=== PATIENT | female | born 1980 | race Caucasian/White ===

== ENCOUNTER → 2025-02-28 | Outpatient (CLI) | payer OTHER, SELFPAY ==
[2025-02-28 16:26] LABS: Hematocrit 39.1 % (37-47); Hemoglobin 12.9 g/dL (12.0-15.0); Immature Granulocytes Count 0.030 X10^3/uL (0.0-0.0); Mean Corp Hgb Conc 33.0 g/dL (32-36); Mean Corpuscular Volume 94.7 fL (81-99); Mean Platelet Vol. 11.2 fl (6.2-12.0); NRBC Flagged by Analyzer 0 % (0-5); Platelet Count 264 K/mm3 (150-450); RBC Distribution Width CV 13.3 % (11.6-14.6); RBC Distribution Width SD 45.9 fl (35.1-43.9); Red Blood Count 4.13 M/mm3 (4.2-5.4); White Blood Count 8.0 K/mm3 (4.4-11.0)
[2025-02-28 17:10] LABS: CRP 5.14 mg/L (0.0-3.0)
[2025-03-02 15:08] LABS: Immunoglobulin A 212 mg/dL (87-352)
[2025-03-06 03:06] LABS: Egg, Whole 3.35 kU/L (Class III); Mussels 0.15 kU/L (Class 0/I)
== END | disposition home or self-care (01) ==
LOC: LAB 15:53
PROVIDERS: Referring Provider Student in an Organized Health Care Education/Training Program; Visit Provider Student in an Organized Health Care Education/Training Program
DX: R19.5 Other fecal abnormalities (principal)
CPT/HCPCS: 36415; 82784; 83516; 85025; 85652; 86003; 86005; 86140; 86255

== ENCOUNTER 2025-03-08 10:16 | Emergency (ER) | payer OTHER, SELFPAY ==
[2025-03-08 10:19] VITALS: BP 153/94; PULSE 100; RESP 22; TEMP 36.4; O2SAT 98; BMI 28.0
--- NOTE | 2025-03-08 10:42 | EDS_ITS ---
HPI HPI - GI History of Present Illness Chief Complaint: Abd Pain Detail of Chief Complaint: Abdominal pain Informant: patient Narrative Narrative: Patient presents with abdominal pain that she has had for the last 2 weeks off-and-on. 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 Recently started Linzess. Last bowel movement was this morning and was small. She has had issues with hematuria in the past. She tells me she has ulcerations in her bladder. Patient states that she has had abdominal pain since the day she was born and she has had all the worst doctors. She has had intermittent blood in her stool and intermittent blood in her urine. She denies any fevers. Currently her pain is a 3 out of 10. This bout of pain started about 2 hours ago. PFSH PFSH Home Medications ?Medication ?Instructions ?Recorded ?Last Taken ?Type duloxetine 60 mg capsule,delayed 60 mg PO QDAY 5 03/08/25 History release glycopyrrolate 2 mg tablet 2 mg PO TID 02/28/25 History (Pilar Webb) dicyclomine 10 mg capsule 20 mg (2 x 10 mg) PO TIDAC # 20 03/08/25 Unknown Rx CAPSULES linaclotide 145 mcg capsule 145 mcg PO DAILY 03/08/25 03/08/25 History (Linzess) ondansetron 4 mg disintegrating 4 mg PO Q8H PRN PRN Na usea #10 tabs 03/08/25 Unknown Rx tablet Allergy/AdvReac Type Severity Reaction Status Date / Time egg (eggs) Allergy Other Verified 03/08/25 10:51 milk Allergy Other Verified 03/08/25 10:51 peanut (peanuts) Allergy Other Verified 03/08/25 10:51 soy Allergy Other Verified 03/08/25 10:51 wheat Allergy Abd Verified 03/08/25 10:51 cramps/diarrhea Surgical History (Updated 03/08/25 @ 10:49 by Candice Brennan) H/O: hysterectomy Social History Smoking Status: Never smoker ROS ROS ED Review of Systems ROS Unobtainable: other Constitutional Constitutional ED: Reports lethargy; Denies chills, fever(s), sweats or weight loss Eyes Eyes: Denies blurry vision, change in vision or diplopia ENT ENT ED: Denies rhinorrhea or sore throat Cardiovascular Cardiovascular: Denies chest pain, orthopnea or racing heartbeat Respiratory/Chest Respiratory/Chest: Denies cough, dyspnea, dyspnea on exertion, orthopnea or sputum Gastrointestinal Gastrointestinal: Reports abdominal pain, nausea and other Details: Intermittent blood in her stool ; Denies diarrhea or vomiting Genitourinary Genitourinary ED: Reports hematuria; Denies dysuria or urinary frequency Musculoskeletal Musculoskeletal: Denies arthralgias, back pain, myalgias or neck pain Integumentary Denies abscess, Abrasions or rash Neurologic Neurologic: Denies headache(s) or weakness Psychiatric Psychiatric: Denies anxiety, depression or suicidal thoughts Endocrine Endocrinology: Denies polydipsia, polyphagia or polyuria Hematologic/Lymphatic Hematologic/Lymphatic: Denies easy bleeding, easy bruising or lymphadenopathy Allergic/Immunologic Allergic/Immunologic ED: Denies mouth swelling, tongue swelling or urticaria EXAM Physical Exam Const Vital Signs: 03/08/25 10:19 03/08/25 12:16 Temperature 97.6 F L Temperature Source Oral Pulse Rate 100 72 Respiratory Rate 22 H 18 Blood Pressure 153/94 H 104/59 L Blood Pressure Mean 113 74 Pulse Ox 98 100 Oxygen Delivery Method Room Air Room Air Positive well nourished and well developed General Appearance ED: well developed and NAD HEENT Reports TM's clear and moist mucous membranes normocephalic and atraumatic; Negative for trauma or tenderness Tympanic Membrane ED: Yes TM's clear Eyes PERRL and EOMs intact bilaterally General Eye ED: Negative for pale conjunctiva or scleral icterus Neck no lymphadenopathy, supple and no JVD General: Negative for tenderness Chest Wall inspection of chest normal and palpation of chest normal Chest: Negative for tenderness Resp normal respiratory effort and clear to auscultation bilaterally Effort and Inspection: Negative for respiratory distress or pain with movement Auscultation: Negative for rhonchi, wheezes or diminished lung sounds Cardio regular rate, regular rhythm, S1 normal heart sound, S2 normal heart sound and no murmurs Peripheral Pulses: pulses 2+ throughout GI soft to palpation, non-tender, non-distended and no masses GI Narrative: Hyperactive bowel sounds. Mild diffuse tenderness. There is no rebound, rigidity, or peritoneal signs. No masses palpated. Back/Spine no CVA tenderness and no thoracic nor lumbar tenderness Extremity normal to inspection General Extremety ED: Negative for edema General Extremity: Negative for edema Neuro oriented x3, CN's II-XII intact bilaterally, no sensory deficits noted and gait normal Sensorium / Orientation: awake, alert, oriented to person, oriented to place and oriented to time Motor Exam: strength 5/5 throughout and strength abnormal Psych mental status grossly normal Skin no rashes or lesions noted and no wounds MDM MDM MDM Narrative Medical decision making narrative: Patient presents with chronic ongoing abdominal pain and bloating as well as nausea with eating. Currently being followed by GI. IV line established on arrival. CBC with differential obtained showed a white count of 6.4 with hemoglobin 13.3 and platelet count 221. Chemistries unremarkable. LFTs were normal. Lipase normal. hCG was negative. Urinalysis without signs of infection. Patient had a CT scan of the abdomen pelvis with IV contrast that showed no acute process. She had left ovarian cyst patient also had a benign cyst in the right kidney. No bowel wall abnormality noted. Discussed results with patient. At this point etiology of her symptoms unclear. Recommended continued follow-up with GI. Will order Bentyl and Zofran as needed. Lab Data Attestation: I reviewed the patient's lab results. Labs: Laboratory Results - last 24 hr 03/08/25 03/08/25 11:04 12:39 WBC 6.4 RBC 4.20 Hgb 13.3 Hct 38.8 MCV 92.4 MCH 31.7 MCHC 34.3 RDW Std Deviation 45.4 H RDW Coeff of [place] 13.5 Plt Count 221 MPV 11.2 Immature Gran % (Auto) 0.300 Neut % (Auto) 59.7 Lymph % (Auto) 25.3 [place] % (Auto) 5.8 Eos % (Auto) 8.6 H Baso % (Auto) 0.3 Absolute Neuts (auto) 3.8 Absolute Lymphs (auto) 1.61 Nucleated RBC % 0 Sodium 137 Potassium 4.0 Chloride 104 Carbon Dioxide 19.2 L Anion Gap 14 BUN 12 Creatinine 0.93 Estim Creat Clear Calc 80.04 Est GFR (MDRD) Non-Af 77 BUN/Creatinine Ratio 12.4 Glucose 106 H Lactic Acid 1.7 Calcium 9.4 Total Bilirubin 0.40 AST 26 ALT 20 Alkaline Phosphatase 92 Total Protein 7.3 Albumin 4.3 Globulin 3.0 Albumin/Globulin Ratio 1.4 Lipase 52 Serum , Qual NEGATIVE Urine Color Yellow Urine Clarity Clear Urine pH 7.0 Ur Specific Waves 1.005 Urine Protein 15 H Urine Glucose (UA) Normal Urine Ketones Negative Urine Occult Blood 25 H Urine Nitrite Negative Urine Bilirubin Negative Urine Urobilinogen Normal Ur Leukocyte Esterase Negative Urine RBC 0-5 SEEN Urine WBC 0 SEEN Ur Squamous Epith Cells 0-5 SEEN Urine Bacteria RARE Urine Mucus 0 SEEN Radiography Diagnostic Testing: Clinical Impression(s) from Imaging Studies Abdomen/Pelvis CT 03/08/25 11:20 IMPRESSION: 1. Benign cysts right kidney. Bosniak 1. No follow-up required. 2. Hysterectomy 3. Possible diarrheal state. Correlate with history. No bowel obstruction or bowel wall thickening. 4. Left ovarian cyst. ACR White Paper recommendations (Abbasi, et al. J Am Brian Radiol 2020;17:248-254) suggest the following: No further imaging. Reading Location: [facility] Discharge Plan Triage Chief Complaint: Abd Pain ED Provider: Jane Cruz Dx/Rx/DC Orders Clinical Impression: Abdominal pain Instructions: ED Abdominal Pain Unkn Cause Fem Prescriptions: New ondansetron 4 mg tablet,disintegrating 4 mg PO Q8H PRN PRN (Reason: Nausea) Qty: 10 0RF dicyclomine 10 mg capsule 20 mg PO TIDAC Qty: 20 0RF No Action duloxetine 60 mg capsule,delayed release(DR/EC) 60 mg PO QDAY glycopyrrolate [Robinul Forte] 2 mg tablet 2 mg PO TID Linzess 145 mcg capsule 145 mcg PO DAILY Primary Care Provider: JULISA BROWN Referrals: Care Physician,No Primary [Non-Staff] - Activity Restrictions/Additional Instructions: Follow-up with Dr. Dawson as needed and keep scheduled appointments. Print Language: [place] Disposition Disposition: Home, Self Care
[2025-03-08] MEDS: 0.9% Normal Saline (1000mL) 1,000 ML 999 ML IV (11:00)
[2025-03-08 11:14] LABS: Hematocrit 38.8 % (37-47); Hemoglobin 13.3 g/dL (12.0-15.0); Immature Granulocytes Count 0.020 X10^3/uL (0.0-0.0); Mean Corp Hgb Conc 34.3 g/dL (32-36); Mean Corpuscular Volume 92.4 fL (81-99); Mean Platelet Vol. 11.2 fl (6.2-12.0); NRBC Flagged by Analyzer 0 % (0-5); Platelet Count 221 K/mm3 (150-450); RBC Distribution Width CV 13.5 % (11.6-14.6); RBC Distribution Width SD 45.4 fl (35.1-43.9); Red Blood Count 4.20 M/mm3 (4.2-5.4); White Blood Count 6.4 K/mm3 (4.4-11.0)
--- NOTE | 2025-03-08 11:20 | CT_ITS ---
PROCEDURE: ABDOMEN/PELVIS W IV CONT ONLY 03/08/2025 REASON FOR EXAM: ABDOMINAL PAIN TECHNIQUE: ABDOMEN/PELVIS W IV CONT ONLY Coronal and Sagittal reconstruction series were provided. CONTRAST: Isovue 370 VOLUME: 96 mL One or more dose reduction techniques were used (e.g., Automated exposure control, adjustment of the mA and/or kV according to patient size, use of iterative reconstruction technique. RADIATION DOSE SUMMARY: CTDlvol: 27 mGy DLP: 937 mGycm COMPARISON: None FINDINGS: Lung bases: Clear Liver: Normal Gallbladder: Normal Spleen: Normal Pancreas: Normal Adrenals: Normal Kidneys: No collecting system dilation, calculus or solid mass. Subcentimeter cyst right mid to lower pole is statistically benign. Bladder: No bladder wall thickening or bladder distention. Reproductive Organs: Hysterectomy. Left ovarian cyst is 1.2 x 1.3 cm. Bowel: The stomach, small bowel and colon are normal in appearance. Contents of the colon are semisolid. Appendix: Normal Lymph nodes: None appear enlarged. Vasculature: Normal Peritoneum / Retroperitoneum: No free air, free fluid or mass. Bones: Unremarkable CT/Abdomen/Pelvis W IV Cont ONLY IMPRESSION: 1. Benign cysts right kidney. Bosniak 1. No follow-up required. 2. Hysterectomy 3. Possible diarrheal state. Correlate with history. No bowel obstruction or bowel wall thickening. 4. Left ovarian cyst. ACR White Paper recommendations (Elroy et al. J Am Col l Radiol 2020;17:248-254) suggest the following: No further imaging. Reading Location: [id number]
[2025-03-08 11:25] LABS: Internal QC Validated? YES +Cl - CLEAR BKGD; Pregnancy, Serum, hCG Quali. NEGATIVE Negative; Record Kit Lot#, Serum Preg. 0000962302
[2025-03-08 11:36] LABS: AST(SGOT) 26 U/L (<=31); Alanine Aminotransfer ALT/SGPT 20 U/L (<=34); Albumin, Serum 4.3 g/dL (3.5-5.0); Alkaline Phosphatase 92 U/L (35-104); Anion Gap 14 (5-15); BUN 12 mg/dL (4-19); BUN/Creat Ratio 12.4 RATIO (10-20); Calcium,Total 9.4 mg/dL (7.6-11.0); Carbon Dioxide 19.2 mmol/L (21.0-32.0); Chloride 104 mmol/L (98-108); Estimated Creatinine Clearance 80.04 ml/min (50-250); Globulin 3.0 g/dL (2.2-4.2); Glucose 106 mg/dL (70-99); Lipase 52 U/L (13-75); Potassium 4.0 mmol/L (3.3-5.1)
[2025-03-08 12:16] VITALS: BP 104/59; PULSE 72; RESP 18; O2SAT 100
[2025-03-08 12:44] LABS: Mucous, Urine 0 SEEN /hpf (<or=2+)
[2025-03-08 12:46] LABS: Color, Urine Yellow (Yellow); Glucose, Dipstick Normal (Normal); Ketone-Dipstick Negative (Negative); Leukocyte Esterase-Dipstick Negative /ul (Negative); Nitrite-Dipstick Negative (Negative); Occult Blood-Urine 25 /ul (Negative); Protein-Dipstick 15 mg/dl (Negative); Specific Gravity, Urine 1.005 (1.002-1.030); Urine Bilirubin Dipstick Negative (Negative)
[2025-03-08 12:59] LABS: Red Blood Cells-Urine 0-5 SEEN /hpf (0-5); Squamous Epithelial Cells - UA 0-5 SEEN /hpf (5-10)
[2025-03-08 13:38] VITALS: BP 100/66; PULSE 70; RESP 16; TEMP 36.8; O2SAT 99
== END 2025-03-08 13:38 | disposition home or self-care (01) ==
PROVIDERS: Emergency Provider Emergency Medicine; Visit Provider Emergency Medicine
DX: R10.9 Unspecified abdominal pain (principal); N28.1 Cyst of kidney, acquired; N32.89 Other specified disorders of bladder; N83.202 Unspecified ovarian cyst, left side; Z79.899 Other long term (current) drug therapy; R31.9 Hematuria, unspecified
CPT/HCPCS: 74177; 80053; 81001; 83605; 83690; 84703; 85025; 96360; 96361; 99283; Q9967; A4216